=== PATIENT | female | born 1985 | race Two or more races ===

== ENCOUNTER 2023-10-28 02:55 | Inpatient (IN) | payer OTHER ==
[~2023-10-28] VITALS: Ht 167.6 cm; Wt 65.8 kg
[2023-10-28] MEDS ORDERED: MORPHINE SULFATE INJ 4 MG/ML DISP.SYRIN ONE ×2 (03:49→07:40)
[2023-10-28] MEDS ORDERED: ONDANSETRON HCL/PF 4 MG/2 ML VIAL ONE ×2 (03:49→07:40)
[2023-10-28] MEDS: MORPHINE SULFATE INJ 2 MG/ML DISP.SYRIN IV ONE ×2 (03:56→05:12)
[2023-10-28 04:01] LABS: BASOPHILS % (AUTO) 0.3 % (0.0-2.0); EOSINOPHILS % (AUTO) 0.3 % (0.0-6.0); HEMATOCRIT 37 % (33-45); HEMOGLOBIN 12.6 g/dL (11.5-14.8); LYMPHOCYTES # (AUTO) 1.2 K/uL (0.8-4.8); LYMPHOCYTES % (AUTO) 11.8 % (20.0-44.0); MEAN CORPUSCULAR HEMOGLOBIN 32 PG (26.0-33.0); MEAN CORPUSCULAR HGB CONC 34 g/dl (31.0-36.0); MEAN CORPUSCULAR VOLUME 93 fL (82-100); MONOCYTES # (AUTO) 0.5 K/uL (0.1-1.30); MONOCYTES % (AUTO) 4.9 % (2.0-12.0); NEUTROPHILS # (AUTO) 8.6 K/uL (1.8-8.9); NEUTROPHILS % (AUTO) 82.7 % (43.0-81.0); PLATELET COUNT (AUTO) 233 K/uL (150-450); RED BLOOD CELL COUNT(AUTO) 4.01 MIL/uL (4.0-5.2); WHITE BLOOD COUNT (AUTO) 10.4 K/uL (4.3-11.0)
[2023-10-28 04:11] LABS: CALCIUM, SERUM 8.1 mg/dL (8.5-10.1); CREATININE 0.7 mg/dL (0.6-1.3); POTASSIUM 3.8 mmol/L (3.5-5.1)
[2023-10-28 04:13] LABS: INR 0.98 (0.91-1.10); PARTIAL THROMBOPLASTIN TIME 27.9 SEC (24.3-34.3); PROTHROMBIN TIME 10.4 SECS (9.2-11.1)
[2023-10-28] MEDS: ONDANSETRON HCL/PF 4 MG/2 ML VIAL IV ONE (04:14)
[2023-10-28] MEDS: IV NS 0.9% 1,000 ML IV SCH (05:00)
[2023-10-28] MEDS ORDERED: MORPHINE SULFATE INJ 2 MG/ML DISP.SYRIN ONE (05:03)
[2023-10-28] MEDS: MORPHINE SULFATE INJ 2 MG/ML DISP.SYRIN IV PRN (05:11)
[2023-10-28 05:16] LABS: MAGNESIUM 1.7 mg/dL (1.8-2.4); PHOSPHORUS 2.6 mg/dL (2.5-4.9)
[2023-10-28] MEDS ORDERED: ALPR1TAB2 PO (07:38)
[2023-10-28] MEDS ORDERED: LAMO200T2 PO (07:38)
[2023-10-28] MEDS: MORPHINE SULFATE INJ 4 MG/ML DISP.SYRIN IV PRN (07:49)
[2023-10-28] MEDS: ONDANSETRON HCL/PF 4 MG/2 ML VIAL IVP PRN (07:50)
[2023-10-28 08:00] VITALS: O2SAT 99
[2023-10-28] MEDS: HYDROMORPHONE 1 MG/1 ML DISP.SYRIN IV PRN ×2 (09:28→16:17)
[2023-10-28] MEDS: Magnesium 1GM/D5W 100ML PREMIX 100 ML IV SCH (09:48)
[2023-10-28 10:00] VITALS: BP 130/89; TEMP 98.4; O2SAT 96
[2023-10-28] MEDS ORDERED: IV NS 0.9% 1,000 ML IV PRN (11:57)
[2023-10-28 16:14] VITALS: BP 126/86; TEMP 98.4; O2SAT 95
[2023-10-28] MEDS ORDERED: ACETAMINOPHEN 325 MG TABLET PO ONE (17:30)
[2023-10-28] MEDS: CELECOXIB 100 MG CAPSULE PO ONE (17:34)
[2023-10-28] MEDS: GABAPENTIN 400 MG CAPSULE PO ONE (17:34)
[2023-10-28] MEDS: ACETAMINOPHEN 325 MG TABLET PO ONE (17:45)
[2023-10-28] MEDS ORDERED: ANESTHESIA TRAY IN PYXIS 1 EA TRAY MC ONE (17:46)
[2023-10-28] MEDS ORDERED: BUPIVACAINE 0.5 % PF 150 MG/30 ML VIAL ONE (17:46)
[2023-10-28] MEDS ORDERED: FENTANYL PF 100MCG/2ML AMPUL ONE (17:58)
[2023-10-28] MEDS ORDERED: MIDAZOLAM HCL 2 MG/2ML VIAL ONE (17:59)
[2023-10-28] MEDS: PANTOPRAZOLE 40 MG TABLET.DR PO SCH (22:10)
[2023-10-28] MEDS: CELECOXIB 100 MG CAPSULE PO SCH (22:10)
[2023-10-29 06:43] LABS: BASOPHILS % (AUTO) 0.4 % (0.0-2.0); EOSINOPHILS # (AUTO) 0.1 K/uL (0.0-0.7); EOSINOPHILS % (AUTO) 0.6 % (0.0-6.0); HEMATOCRIT 34 % (33-45); HEMOGLOBIN 11.8 g/dL (11.5-14.8); LYMPHOCYTES # (AUTO) 2.3 K/uL (0.8-4.8); LYMPHOCYTES % (AUTO) 25.4 % (20.0-44.0); MEAN CORPUSCULAR HEMOGLOBIN 32 PG (26.0-33.0); MEAN CORPUSCULAR HGB CONC 35 g/dl (31.0-36.0); MEAN CORPUSCULAR VOLUME 93 fL (82-100); MONOCYTES # (AUTO) 1.2 K/uL (0.1-1.30); MONOCYTES % (AUTO) 13.4 % (2.0-12.0); NEUTROPHILS # (AUTO) 5.4 K/uL (1.8-8.9); NEUTROPHILS % (AUTO) 60.2 % (43.0-81.0); PLATELET COUNT (AUTO) 198 K/uL (150-450); RED BLOOD CELL COUNT(AUTO) 3.68 MIL/uL (4.0-5.2)
[2023-10-29 08:00] VITALS: BP_SYST 118; BP_SYST 128; BP_DIAS 76; BP_DIAS 77; TEMP 98.2; TEMP 98.8; O2SAT 100; O2SAT 99
[2023-10-29 08:19] LABS: CALCIUM, SERUM 8.6 mg/dL (8.5-10.1); CREATININE 0.6 mg/dL (0.6-1.3); POTASSIUM 3.9 mmol/L (3.5-5.1)
[2023-10-29] MEDS: KETOROLAC TROMETHAMINE 15 MG/ML VIAL IV PRN (08:24)
[2023-10-29] MEDS: GABAPENTIN 400 MG CAPSULE PO SCH (08:25)
[2023-10-29] MEDS: LamoTRIgine 100 MG TABLET PO SCH (08:26)
[2023-10-29] MEDS: NEOMY SULF/BACITRAC ZN/POLY 15 GM TUBE TP SCH (08:26)
[2023-10-29] MEDS: HYDROMORPHONE 1 MG/1 ML DISP.SYRIN IV PRN (10:05)
[2023-10-29 16:00] VITALS: BP 130/75; TEMP 98.1; O2SAT 100
[2023-10-29] MEDS: ALPRAZOLAM 1 MG TABLET PO PRN (21:04)
[2023-10-29] MEDS ORDERED: ZOLPIDEM TARTRATE 5 MG TABLET PO PRN (23:30)
[2023-10-30 06:55] LABS: BASOPHILS % (AUTO) 0.4 % (0.0-2.0); EOSINOPHILS # (AUTO) 0.1 K/uL (0.0-0.7); EOSINOPHILS % (AUTO) 0.8 % (0.0-6.0); HEMATOCRIT 34 % (33-45); HEMOGLOBIN 11.6 g/dL (11.5-14.8); LYMPHOCYTES # (AUTO) 1.7 K/uL (0.8-4.8); LYMPHOCYTES % (AUTO) 17.5 % (20.0-44.0); MEAN CORPUSCULAR HEMOGLOBIN 32 PG (26.0-33.0); MEAN CORPUSCULAR HGB CONC 34 g/dl (31.0-36.0); MEAN CORPUSCULAR VOLUME 93 fL (82-100); MONOCYTES # (AUTO) 1.3 K/uL (0.1-1.30); MONOCYTES % (AUTO) 13.7 % (2.0-12.0); NEUTROPHILS # (AUTO) 6.4 K/uL (1.8-8.9); NEUTROPHILS % (AUTO) 67.6 % (43.0-81.0); PLATELET COUNT (AUTO) 195 K/uL (150-450); RED BLOOD CELL COUNT(AUTO) 3.61 MIL/uL (4.0-5.2); RED CELL DISTRIBUTION WIDTH 12.5 % (11.5-15.0); WHITE BLOOD COUNT (AUTO) 9.5 K/uL (4.3-11.0)
[2023-10-30 07:00] VITALS: BP 102/69; TEMP 100.2; O2SAT 98
[2023-10-30 07:39] LABS: CALCIUM, SERUM 8.1 mg/dL (8.5-10.1); POTASSIUM 3.6 mmol/L (3.5-5.1)
[2023-10-30 07:59] LABS: CREATININE 0.6 mg/dL (0.6-1.3)
[2023-10-30] MEDS: HYDROCODONE/APAP 10/325MG TABLET PO PRN (09:25)
[2023-10-30] MEDS ORDERED: HYDR-3980 PO ×2 (09:58→10:39)
== END 2023-10-30 12:30 | disposition home or self-care (01) | DRG 505 ==
LOC: ER 02:55 → MED 08:15
PROVIDERS: ADMIT Nurse Practitioner Acute Care; ATTEND Internal Medicine
PROC: 0QSL04Z Reposition Right Tarsal with Internal Fixation Device, Open Approach (ICD-10-PCS; principal; 2023-10-28)
DX: S92.031A Displaced avulsion fracture of tuberosity of right calcaneus, initial encounter for closed fracture (principal); W10.9XXA Fall (on) (from) unspecified stairs and steps, initial encounter; Y92.009 Unspecified place in unspecified non-institutional (private) residence as the place of occurrence of the external cause; F31.9 Bipolar disorder, unspecified; Y93.01 Activity, walking, marching and hiking; S09.90XA Unspecified injury of head, initial encounter; R20.2 Paresthesia of skin; S01.21XA Laceration without foreign body of nose, initial encounter
CPT/HCPCS: 36415; 71045-TC; 72125-TC; 73600-TC; 73610-TC; 73630-TC; 73650-TC; 73700-TC; 80048-TC; 83735-TC; 84100-TC; 84702-TC; 85025-TC; 85730-TC; 97110-TC; 97116-TC; 97530-TC; A4223; A6253; A6403; G0378; J0690; J1170; J1885; J2250; J2270; J2405; J2704; J2765; J3010; J3475; J3490; J7030

== ENCOUNTER 2023-12-09 13:54 | Emergency (ER) | payer BC, OTHER ==
[~2023-12-09] VITALS: Ht 162.6 cm; Wt 58.1 kg
[~2023-12-09 13:54] MED LIST: ALPR1TAB2 PO; HYDR-3980 PO; LAMO200T2 PO
--- NOTE | 2023-12-09 14:40 | NUR ---
PT BROUGHT IN BY FAMILY FOR GLF X 1 DAY, PCP REQUESTS R ANKLE SCREWS CHECK. FAMILY IS AT THE BEDSIDE AT THIS TIME.
[2023-12-09] MEDS ORDERED: HYDROCODONE/APAP 5/325MG TABLET ONE (16:07)
[2023-12-09] MEDS: HYDROCODONE/APAP 5/325MG TABLET PO ONE (16:10)
[2023-12-09] MEDS ORDERED: HYDR-4209 PO (18:16)
[2023-12-09 19:21] VITALS: BP 113/76; TEMP 99.1; O2SAT 100
--- NOTE | 2023-12-09 19:21 | NUR ---
Patient discharged to home in stable condition. Written and verbal after care instructions given. Patient verbalizes understanding of instruction.
== END 2023-12-09 19:22 | disposition home or self-care (01) ==
LOC: ER 14:00
DX: S92.001A Unspecified fracture of right calcaneus, initial encounter for closed fracture (principal); Z86.59 Personal history of other mental and behavioral disorders; W18.39XA Other fall on same level, initial encounter; Y93.89 Activity, other specified; Y92.89 Other specified places as the place of occurrence of the external cause; Y99.8 Other external cause status
CPT/HCPCS: 99283; 73630; A6403